=== PATIENT | male | born 1950 | race Caucasian/White ===

== ENCOUNTER 2018-07-29 06:22 | Inpatient (IN) ==
--- NOTE | 2018-07-28 21:43 | Discharge Summary ---
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 status Diabetes mellitus complication status: with unspecified complications Qualified Code(s): E11.8 - Type 2 diabetes mellitus with unspecified complications (5) HLD (hyperlipidemia) Priority: Secondary Status: Chronic Qualifiers: Hyperlipidemia type: unspecified Qualified Code(s): E78.5 - Hyperlipidemia, unspecified (6) GERD (gastroesophageal reflux disease) Priority: Secondary Status: Chronic Qualifiers: Esophagitis presence: esophagitis presence not specified Qualified Code(s): K21.9 - Gastro-esophageal reflux disease without esophagitis (7) Sinus tachycardia Priority: Secondary Status: Acute - Hospital Course Hospital course: Mr. Banda is a 67 year old male POD#0 Date of procedure: 07/29/18 Pre-op diagnosis: Right shoulder cuff tear arthropathy, right elbow olecranon bursitis Post-op diagnosis: same Procedure: Total Shoulder Replacment Reverse, right aspiration of right elbow Patient seen at bedside. Spouse at bedside. A&Ox3 Dressing and incision c/d/i No calf tenderness, erythema, or warmth. Neurovascularly intact b/l LE. Labwork, vitals, and medications reviewed. Pain control: Adequate Participating in PT. All questions and concerns addressed. Educated on use of incentive spirometer, ambulation, and hydration. Patient educated on post-operative restrictions and care. Addressed: Remove abduction pillow on POD#1 Begin gentle elbow and wrist ROM Nonweightbearing to operative extremity. Change elbow bandage daily and cleanse with soap and water. EKG obtained following uptrend of patient's heart rate. Change from baseline noted - EKG repeated with same findings and Troponin was ordered, which came back wnl. Patient encouraged to follow up with PCP for sinus tach and seek emergency eval and treatment if any chest pain, sob, dizziness, etc occurs. Patient and spouse verbalize understanding and agreement. D/C plan: Home with outpatient therapy and follow up arranged - Time Spent with Patient Total time spent providing and/or coordinating discharge services: - Discharge Medications Prescriptions: New Docusate Sodium [Colace] 100 mg PO BID 5 Days #10 capsule Acetaminophen [Non-Aspirin Extra Strength] 500 mg PO Q6H PRN 7 Days #28 tablet PRN Reason: Mild To Moderate Pain OxyCODONE Immed Rel [Roxicodone 5 MG] 5 mg PO Q6HR PRN 5 Days #20 tablet PRN Reason: Severe Pain Continued Omeprazole [PriLOSEC] 20 mg PO BID Aspirin [Adult Aspirin] 81 mg PO DAILY Metformin HCl [Glucophage] 1,000 mg PO BID glipiZIDE [Glipizide] 10 mg PO BID Atorvastatin Calcium [Lipitor] 20 mg PO QPM Tramadol HCl [Ultram] 50 mg PO QID PRN PRN Reason: Pain Home Medications: Aspirin [Adult Aspirin] 81 mg PO DAILY 06/06/18 [History] Metformin HCl [Glucophage] 1,000 mg PO BID 06/06/18 [History] Omeprazole [PriLOSEC] 20 mg PO BID 06/06/18 [History] glipiZIDE [Glipizide] 10 mg PO BID 06/06/18 [History] Acetaminophen [Non-Aspirin Extra Strength] 500 mg PO Q6H PRN 7 Days #28 tablet 07/28/18 [Rx] Docusate Sodium [Colace] 100 mg PO BID 5 Days #10 capsule 07/28/18 [Rx] OxyCODONE Immed Rel [Roxicodone 5 MG] 5 mg PO Q6HR PRN 5 Days #20 tablet 07/28/18 [Rx] Atorvastatin Calcium [Lipitor] 20 mg PO QPM 07/29/18 [History] Tramadol HCl [Ultram] 50 mg PO QID PRN 07/29/18 [History] Allergies/Adverse Reactions: Allergy/AdvReac Type Severity Reaction Status Date / Time No Known Allergies Allergy Verified 07/29/18 07:12 Date of admission: 07/29/18 Primary care physician: Lise Suarez CNP Discharging clinician: Shaun Vallejo Anticipated date of discharge: 07/29/18 - VTE Documentation of Mechanical Device: Venous foot pump, device - Patient Status Disposition: Home, Self-Care Condition: Good Functional capacity at discharge: independent ambulation Overall status at discharge: patient is progressing back to baseline - Discharge Instructions Follow Up With: Mary Grace Knott, YESSY [Physician Lumber Carrier] - 08/07/18 1:00 pm Lise Suarez, [employer] FOUNDER AND CHIEF STRATEGY OFFICER [Primary Care Provider] - Additional Instructions: Discharge Instructions: Total Shoulder Please call [facility] ([phone]), your Primary Care Physician, or report to the Emergency Room if you have any of the following symptoms: Nausea, vomiting, fever greater that 101.5, swelling, chest pain, shortness of breath, increased pain/redness/drainage/odor for your incision site, numbness/tingling, or any other concerning symptoms. ACTIVITY: Always keep your arm in the sling. Do not raise your arm away from your body. Do not use your arm to help with getting in or out of bed. No weight bearing permitted. Only perform those exercises given to you by your therapist. Incentive Spirometer 10 times an hour. MEDICATIONS: Upon discharge resume your home medications. Take all the medications as prescribed. Take a stool softener if taking narcotic pain medications. Stool softeners are only effective if you drink enough fluids. Drink 6-8 glass of water or fluids a day, unless this is not allowed for another health problem. Despite using stool softeners, if you haven't had a bowel movement in 3 days, please switch to a gentle laxative. Gentle laxatives are sold over the counter. You should have a bowel movement within 24 hours, if not call the office. You will be discharged from the hospital with a prescription for pain medication. You are encouraged to decrease the use of narcotic pain medication as tolerated. Should you require a refill, please call the office. [facility] prescribes narcotic pain medication for only 4-6 weeks after surgery. If you require pain medication beyond this time period, you may be referred to your Primary Care Physician or to the Pain Clinic for further evaluation. Plan ahead for refills on pain medication as many narcotics either need to be picked up at the office or mailed. It is best to call 48-72 hours in advance of needing a prescription refill so you don't run out of medication. To help control the post-operative pain, you may take NSAIDs (Aleve,Advil, Motrin, Ibuprofen, Naprosyn) or Tylenol as prescribed on the bottle in addition to the pain medication. WOUND CARE: Leave the dressing on for 7-10 days. You may change the dressing if it becomes saturated greater than 50%. Do not get the dressing wet at anytime. Wash your hands with antibacterial soap, rinse and dry prior to any wound care. If you have karen the visiting nurse or rehab facility can remove the stapes 10-14 days after surgery and place steri-strips across the wound. Leave the steri-strips in place until they fall off on their own. You may let water from the shower run on top of the steri-strips. If you do not have a visiting nurse or rehab facility, you will need to return to the office at 10-14 days for the karen to be removed. If you have itching or redness around the dressing call the office. FOLLOW-UP: Please follow up with your surgeon in the orthopedic clinic, as scheduled - Diet and Activity Activity: as per physical therapy Diet: advance to your usual diet
--- NOTE | 2018-07-29 06:49 | History & Physical Report ---
Date of Encounter: 07/29/18 Time of Encounter: 06:48 24 Hour HP Update - Instructions Instructions: If the History and Physical is less than 30 days old and was completed prior to A.M. admission and or procedure and has NOT been updated on calendar day of procedure please complete this update prior to performing procedure. - Update Patient reports changes in Medical Condition: No Changes in examination, assessment, or condition: No Changes in Medication: No Preop tests/diagnostics Reviewed: Yes Surgery Remains Indicated: Yes Consent for Planned Operative Procedure(s) Verified: Yes - Pre-Operative Checklist Preoperative Checklist Indicated: No Prophylactic Antibiotic Ordered: Yes Is VTE Prophylaxis Indicated?: Yes
[2018-07-29] MEDS ORDERED: CeFAZolin Syr 2,000MG/20 ML 2,000 MG/20 ML SYRINGE IVPB ONE (07:02)
[2018-07-29] MEDS ORDERED: Lidocaine -MPF 4% 5 ML AMPUL ONE (07:15)
[2018-07-29] MEDS ORDERED: Lidocaine -MPF 2% 2 ML VIAL ONE (07:15)
[2018-07-29] MEDS ORDERED: *HR* Succinylcholine 200 MG/10 ML VIAL IVP ONE (07:15)
[2018-07-29] MEDS ORDERED: Ringers Solution, Lactated 1,000 ML IVC SCH ×2 (07:15→10:30)
[2018-07-29] MEDS ORDERED: *HR* FentaNYL (PF) 100 MCG/2 ML VIAL ONE (07:15)
[2018-07-29] MEDS ORDERED: *HR* Midazolam HCl 2 MG/2 ML VIAL ONE (07:16)
[2018-07-29] MEDS ORDERED: *HR* Propofol 200 MG/20 ML VIAL IVP ONE (07:16)
[2018-07-29] MEDS ORDERED: Ondansetron 4 MG/2 ML VIAL ONE (07:26)
[2018-07-29] MEDS ORDERED: Dexamethasone 4 MG/ML VIAL ONE (07:26)
--- NOTE | 2018-07-29 07:27 | Anesthesia Evaluation PreOp ---
Date of Encounter: 07/29/18 Time of Encounter: 07:25 - Past History Planned Operation: RIGHT TSA Cardiac History: Denies any Significant Hx Pulmonary History: Denies Any Significant HX FORENSIC AUDIT EXPERT History: Denies Any Significant HX Other Medical History: Diabetes Type II, GERD (CONTROLLED) Anesthesia History: No Prior Anesthetic Complications, Past Anesthesia Alcohol Use: none Drug use: none Medications and Allergies Aspirin [Adult Aspirin] 81 mg PO DAILY 06/06/18 [History] Metformin HCl [Glucophage] 1,000 mg PO BID 06/06/18 [History] Omeprazole [PriLOSEC] 20 mg PO BID 06/06/18 [History] glipiZIDE [Glipizide] 10 mg PO BID 06/06/18 [History] Acetaminophen [Non-Aspirin Extra Strength] 500 mg PO Q6H PRN 7 Days #28 tablet 07/28/18 [Rx] Docusate Sodium [Colace] 100 mg PO BID 5 Days #10 capsule 07/28/18 [Rx] OxyCODONE Immed Rel [Roxicodone 5 MG] 5 mg PO Q6HR PRN 5 Days #20 tablet [Rx] Atorvastatin Calcium [Lipitor] 20 mg PO QPM 07/29/18 [History] Tramadol HCl [Ultram] 50 mg PO QID PRN 07/29/18 [History] Allergy/AdvReac Type Severity Reaction Status Date / Time No Known Allergies Allergy Verified 07/29/18 07:12 - Meds/Allergy Pre-op Review Medications Reviewed: Yes Allergies Reviewed: Yes Beta Blockers on Current Med List: No Anesthesia Exam Vital Signs/O2 Sat, Most Current Temp Pulse Resp BP Pulse Ox 97.9 F 85 18 146/90 94 07/29/18 07:18 07/29/18 07:18 07/29/18 07:18 07/29/18 07:18 07/29/18 07:18 Weight: 92 KG - BMI 31 NPO (# of Hours): 8 - HEENT Mallampati: III Teeth: Edentulous - Cardiac Rhythm: Regular - Pulmonary Breath Sounds: bilateral Clear Anesthesia Assess/Plan ASA Score: 2 Anesthetic Plan: General, Regional Nerve Block Monitoring Plan: Standard Monitors Recovery Plan: PACU
[2018-07-29] MEDS ORDERED: Ondansetron 4 MG/2 ML VIAL IVP PRN ×2 (07:28→10:30)
[2018-07-29] MEDS ORDERED: Acetaminophen IV 1,000 MG/100 ML INFUS..BTL IVPB PRN (07:28)
[2018-07-29] MEDS ORDERED: Ketorolac 30 MG/ML VIAL IVP PRN (07:28)
[2018-07-29] MEDS ORDERED: *HR* HYDROmorphone (PF) 1 MG/ML SYRINGE IVP PRN (07:30)
[2018-07-29] MEDS ORDERED: ROPIVACAINE/PF/NS SYRINGE INTRAART ONE (07:30)
[2018-07-29] MEDS ORDERED: *HR* Promethazine 25 MG/ML VIAL IVP PRN (07:30)
[2018-07-29] MEDS ORDERED: ROPIVACAINE HCL/PF 0.5% 30 ML VIAL ONE (07:30)
[2018-07-29] MEDS ORDERED: *HR* OxyCODONE Immed Rel 5 MG TABLET PO PRN ×2 (07:30→10:30)
[2018-07-29] MEDS ORDERED: Ethanol\\Acetic Acid\\Na Ace\\Ben 1,000 ML IRRIG.SOLN IR ONE (07:52)
[2018-07-29] MEDS ORDERED: MethylPREDNISolone Acet(DEPOT) 40 MG/ML VIAL ONE (08:09)
[2018-07-29] MEDS ORDERED: MethylPREDNISolone Acet(DEPOT) 80 MG/ML VIAL ONE (08:10)
[2018-07-29] MEDS ORDERED: *HR* PHENYLEPHRINE 1,000 MCG/10 ML SYRINGE IVP ONE (08:39)
[2018-07-29] MEDS ORDERED: EPHEDrine 50 MG/ML VIAL ONE (08:42)
--- NOTE | 2018-07-29 09:00 | Anesthesia Procedures ---
Date of Encounter: 07/29/18 Time of Encounter: 08:10 Procedures: Anesthesia - Nerve Block Procedure Date: 07/29/18 Time: 08:10 Checklist: Correct Patient Identifier, Correct procedure, History checked Correct side: Right Blood Thinner: No Monitor Applied: EKG, BP, Pulse Oximetry Supplemental Oxygen via Nasal Cannula (L/min): 3 Sedation: Versed (mg): 2 Sedation: Fentanyl (mcg): 100 Indication: Post Op Analgesia Pre-op Neuro Deficits: No Block Type: Supraclavicular Catheter placed: No Sterile Technique: Yes Ultrasound used: Yes Anatomy identified: Yes Visual spread of Local: Yes Neuro Stimulation: No Blood on Needle Aspiration: No Smooth Injection of Local: Yes Pain with Injection of Local: No Prep: Chlorhexadine Needle: 22 x 50 mm Stimuplex Local: Ropivacaine (0.5% 30ml) Volume (cc): 30 Number of Attempts: 1 Complications: None/effective block
--- NOTE | 2018-07-29 09:19 | Orthopedic Operative Note ---
Date of procedure: 07/29/18 Pre-op diagnosis: Right shoulder cuff tear arthropathy, right elbow olecranon bursitis Post-op diagnosis: same Procedure: Procedure: Total Shoulder Replacment Reverse, right aspiration of right elbow Estimated blood loss: 50 cc Hardware: Metal and polyethylene replacement: Arthrex 28, +2 , 30 mm post glenoid baseplate, 4 locking 5.5 screw, 42+4 glenosphere, 12 apex humeral stem, poly insert 3 Exam Under anesthesia: Full motion no instability Procedural Notes: Massive retracted rotator cuff tear Operative procedure: The patient was brought to the operating room and placed on the operating room table. After general anesthesia was administered the operative shoulder was examined. Findings were noted. The right elbow was aspirated under sterile conditions, he turned 5 mL hemorrhagic fluid injected with 1 mL of Marcaine 1 mL Depo-Medrol. The patient was placed in the modified beachchair position. All pressure points were padded appropriately. And the head was stabilized in the neutral position. The operative extremity was prepped and draped in the sterile surgical fashion. The patient received IV antibiotics prior to skin incision. A standard deltopectoral approach was made to the operative shoulder. Incision was made to the skin and subcutaneous tissue,hemo stasis was obtained with Bovie cautery. Using careful blunt dissection the cephalic vein was identified and mobilized medially. The deltopectoral interval was developed and the clavipectoral fascia was incised. The subscap was released off the lesser tuberosity and tagged with #2 FiberWire suture subscap irreparable. The humerus was dislocated patient noted to have irreparable tear supraspinatus tendon, and the humeral cut was made along the anatomic neck. Anterior and posterior Bankart retractors were placed to expose the glenoid. The glenoid guide was seated and the centering hole was made. It was reamed with the appropriate reamer. The 28, +2, 30 mm post baseplate was seated and secured with 4 locking 5.5 screw. The baseplate was irrigated and dried and the 42+4 Glenosphere was seated and secured with the Alcazar taper. The Alcazar taper was tested and found to be secure, glenosphere fixation was secondarily secured with the central screw. The humerus was redislocated and prepared with the diaphyseal reamers, followed by a broaching process up to the appropriate size 12 in the patient's anatomic version. The metaphyseal reamer was then utilized. Trial reduction found the shoulder to be relocatable. Trial components were removed and 12 stem was impacted in place in the patient's anatomic version. Trial reduction found the shoulder to be relocatable and stable with the appropriate 3 Trial component was removed and the real implant was seated and secured the shoulder was reduced. The shoulder had excellent motion and exc ellent stability and no evidence of dislocation. The deep tissue was irrigated with pulse irrigation. The PA close the shoulder. The deltopectoral interval was closed with a running #1 PDS suture, subcutaneous tissue was irrigated and closed with 0 PDS suture, the skin was closed with Dermabond. The patient was placed in a sterile dressing, abduction brace and extubated. The patient was then transferred to the recovery room in stable condition. Anesthesia: GETA Surgeon: Shaun Vallejo Was there an assistant broker present: No Estimated blood loss (cc): 50 Condition: stable Disposition: PACU
[2018-07-29] MEDS ORDERED: Dextrose Gel 15 GM/37.5 ML TUBE PO PRN ×2 (10:30)
[2018-07-29] MEDS ORDERED: Sennosides 8.6 MG TABLET PO PRN (10:30)
[2018-07-29] MEDS ORDERED: D5% in Water 1,000 ML IVC PRN (10:30)
[2018-07-29] MEDS ORDERED: traMADol 50 MG TABLET PO PRN (10:30)
[2018-07-29] MEDS ORDERED: MOM Conc 10 ML UD.LIQ PO PRN (10:30)
[2018-07-29] MEDS ORDERED: *HR* OxyCODONE/APAP 5/325 TABLET PO PRN (10:30)
[2018-07-29] MEDS ORDERED: Aspirin Enteric Coated 81 MG Tablet PO SCH (10:30)
[2018-07-29] MEDS ORDERED: *HR* Dextrose 50 % in Water (Syg) 50 ML SYRINGE IVP PRN (10:30)
[2018-07-29] MEDS ORDERED: Temazepam 15 MG CAPSULE PO PRN (10:30)
[2018-07-29 10:42] LABS: Hematocrit 43.4 % (37.5-50.1); Hemoglobin 14.6 g/dL (12.9-16.9)
[2018-07-29] MEDS: *HR* Metformin 500 MG TABLET PO SCH ×2 (11:12→17:25)
[2018-07-29] MEDS: *HR* GlipiZIDE 5 MG TABLET PO SCH ×2 (11:12→17:25)
--- NOTE | 2018-07-29 11:40 | Anesthesia Evaluation Post Op ---
Date of Encounter: 07/29/18 Time of Encounter: 10:30 - Vital Signs Vital Signs: Last Vital Signs Temp 97.6 F 07/29/18 11:17 Pulse 102 07/29/18 11:17 Resp 18 07/29/18 11:17 BP 119/73 07/29/18 11:17 Pulse Ox 96 07/29/18 11:17 - Lungs Lungs: Clear Ascult./Percussion - Airway Airway: Non-obstructed - Cardiovascular Regular Rate - Mental Status Mental Status: Alert & Oriented, Answers Appropriately - Pain Pain Scale: 0 - Nausea Vomiting Nausea Vomiting: Not Present - Hydration Hydration: Ice chips - Discharge PostOp Status: Transfer Patient to floor
[2018-07-29] MEDS: Insulin LISPRO 300 UNITS/3 ML VIAL SQ SCH ×2 (11:59→17:26)
[2018-07-29] MEDS ORDERED: *HR* Enoxaparin 30 MG/0.3 ML SYRINGE SQ SCH ×2 (15:45→18:00)
[2018-07-29 16:35] VITALS: BP 107/65
[2018-07-29] MEDS ORDERED: Insulin LISPRO 300 UNITS/3 ML VIAL SQ SCH (21:00)
--- NOTE | 2018-07-30 09:52 | Electrocardiograph Report ---
[place] [id number] Test Date: 2018-07-29 Pat Name: Ulisses Banda Department: 114 Room: [facility] Gender: M [employer] Specialist: ARGELIA : 1950 Requested By: Mary Grace Gale Order Number: [id number] Reading MD: Neal Espino Measurements Intervals Golden Rate: 114 P: 35 MI: 168 QRS: 24 QRSD: 95 T: -10 QT: 360 QTc: 428 Interpretive Statements SINUS TACHYCARDIA INFEROLATERAL ST AND T WAVE CHANGES Electronically Signed On 07-30-2018 9:51:00 EDT by Neal Espino
== END 2018-07-29 18:50 | disposition home or self-care (01) | DRG 483 ==
LOC: SAMDAY 06:22 → 3NENU 10:26
PROVIDERS: ADMIT Orthopaedic Surgery; ATTEND Orthopaedic Surgery